=== PATIENT | female | born 1980 | race Caucasian/White ===

== ENCOUNTER 2018-06-28 15:47 | Emergency (ER) | payer OTHER ==
[2018-06-28 20:29] LABS: ADD UMIC YES; UR ASCORBIC ACID NEGATIVE (NEGATIVE); UR BACTERIA FEW /HPF (NONE SEEN); UR BILIRUBIN (Dip) NEGATIVE (NEGATIVE); UR BLOOD (Dip) 3+ mg/dL (NEGATIVE); UR CLARITY CLOUDY (CLEAR); UR COLOR AMBER (YELLOW); UR GLUCOSE (Dip) NEGATIVE (NEGATIVE); UR KETONES (Dip) NEGATIVE (NEGATIVE); UR LEUKOCYTE ESTERASE (Dip) NEGATIVE Leu/ul (NEGATIVE); UR NITRITE (Dip) NEGATIVE (NEGATIVE); UR RBC > 182 /HPF (0-5); UR SPECIFIC GRAVITY (Dip) 1.014 (1.003-1.030); UR SQUAMOUS EPITHELIAL CELL FEW /HPF (FEW); UR TOTAL PROTEIN (Dip) 2+ mg/dl (NEGATIVE); UR UROBILINOGEN (Dip) NEGATIVE (NEGATIVE); UR WBC > 182 /HPF (0-5)
== END 2018-06-28 20:50 | disposition home or self-care (01) ==
LOC: FTE 15:47
DX: O20.9 Hemorrhage in early pregnancy, unspecified (principal); O20.0 Threatened abortion; O23.41 Unspecified infection of urinary tract in pregnancy, first trimester; Z3A.01 Less than 8 weeks gestation of pregnancy
CPT/HCPCS: 36415; 76801; 76817; 81001; 81025; 84702; 87086; 99284-25

== ENCOUNTER 2018-06-29 20:25 | Observation (INO) | payer OTHER ==
[2018-06-29 21:05] LABS: ADD MAN DIFF? NO
[2018-06-29 21:06] LABS: BASOPHILS % 0.2 % (0.0-2.0); EOSINOPHILS # 0.2 10^3/ul (0.0-0.5); EOSINOPHILS % 1.7 % (0.0-7.0); HEMATOCRIT 46.1 % (37.0-47.0); HEMOGLOBIN 15.3 g/dl (12.0-16.0); LYMPHOCYTES # 3.6 10^3/ul (0.8-2.9); LYMPHOCYTES % 32.1 % (15.0-51.0); MEAN CORPUSCULAR HEMOGLOBIN 29.1 pg (29.0-33.0); MEAN CORPUSCULAR HGB CONC 33.2 g/dl (32.0-37.0); MEAN CORPUSCULAR VOLUME 87.6 fl (82.0-101.0); MEAN PLATELET VOLUME 11.5 fl (7.4-10.4); MONOCYTE # 0.6 10^3/ul (0.3-0.9); MONOCYTES % 4.9 % (0.0-11.0); NEUTROPHIL # 6.9 10^3/ul (1.6-7.5); NEUTROPHILS % 60.9 % (39.0-77.0); PLATELET COUNT 236 10^3/UL (140-415); RED BLOOD COUNT 5.26 10^6/ul (4.20-5.40); RED CELL DISTRIBUTION WIDTH 12.6 % (11.5-14.5)
[2018-06-29 21:06] LABS: WHITE BLOOD COUNT 11.3 10^3/ul (4.8-10.8)
[2018-06-29] MEDS: morphine 4 MG/ML VIAL IV ×2 (21:09→23:34)
[2018-06-29] MEDS: ONDANSETRON 4 MG INJ IV (21:11)
[2018-06-29] MEDS: SOD CHLORIDE 0.9% 1,000 ML IV (21:11)
[2018-06-29 21:12] LABS: POSITIVE DIFF @See below
[2018-06-29 21:25] LABS: ALANINE AMINOTRANSFERASE 13 IU/L (13-69); ALBUMIN 4.1 g/dl (3.3-4.9); ALBUMIN/GLOBULIN RATIO 1.46; ALKALINE PHOSPHATASE 80 IU/L (42-121); ANION GAP 11 (5-13); ASPARTATE AMINO TRANSFERASE 20 IU/L (15-46); BLOOD UREA NITROGEN 17 mg/dl (7-20); CALCIUM 9.2 mg/dl (8.4-10.2); CARBON DIOXIDE 24 mmol/L (21-31); CHLORIDE 105 mmol/L (97-110); CREATININE 0.64 mg/dl (0.44-1.00); Estimated GFR > 60 mL/min (>60); GLUCOSE 108 mg/dl (70-220); POTASSIUM 4.2 mmol/L (3.5-5.1); SODIUM 140 mmol/L (135-144); TOTAL PROTEIN 6.9 g/dl (6.1-8.1)
[2018-06-29 22:44] LABS: ADD UMIC YES; UR ASCORBIC ACID NEGATIVE (NEGATIVE); UR BILIRUBIN (Dip) NEGATIVE (NEGATIVE); UR BLOOD (Dip) 3+ mg/dL (NEGATIVE); UR CLARITY CLOUDY (CLEAR); UR COLOR RED (YELLOW); UR GLUCOSE (Dip) NEGATIVE (NEGATIVE); UR KETONES (Dip) NEGATIVE (NEGATIVE); UR LEUKOCYTE ESTERASE (Dip) TRACE Leu/ul (NEGATIVE); UR NITRITE (Dip) NEGATIVE (NEGATIVE); UR RBC > 182 /HPF (0-5); UR SPECIFIC GRAVITY (Dip) 1.015 (1.003-1.030); UR TOTAL PROTEIN (Dip) 2+ mg/dl (NEGATIVE); UR UROBILINOGEN (Dip) NEGATIVE (NEGATIVE); UR WBC 134 /HPF (0-5)
[2018-06-30] MEDS: HYDROmorphONE 0.5 MG/0.5 ML SYG IV (00:48)
[2018-06-30] MEDS ORDERED: ACETAMINOPHEN 325 MG TAB PO (01:00)
[2018-06-30] MEDS ORDERED: ONDANSETRON 4 MG INJ IV ×2 (01:00→05:30)
[2018-06-30 03:56] LABS: INR 0.93; PROTIME 12.6 Sec (11.9-14.9)
[2018-06-30 03:57] LABS: PARTIAL THROMBOPLASTIN TIME 30.4 Sec (23.0-35.0)
[2018-06-30] MEDS ORDERED: CEFAZOLIN 1 GM INJ (05:22)
[2018-06-30] MEDS ORDERED: MIDAZOLAM 1 MG/ML 2 ML INJ (05:22)
[2018-06-30] MEDS ORDERED: PROPOFOL 20 ML (05:22)
[2018-06-30] MEDS ORDERED: ONDANSETRON 4 MG INJ (05:23)
[2018-06-30] MEDS ORDERED: METOCLOPRAMIDE 10 MG INJ (05:23)
[2018-06-30] MEDS ORDERED: KETOROLAC 30 MG INJ (05:23)
[2018-06-30] MEDS ORDERED: HYDROmorphONE 1 MG/5 ML IV SYRINGE IV ×3 (05:30)
[2018-06-30] MEDS ORDERED: MEPERIDINE 25 MG INJ IV (05:30)
[2018-06-30] MEDS ORDERED: DIPHENHYDRAMINE 50 MG INJ IV (05:30)
[2018-06-30] MEDS ORDERED: FENTAnyl 50 MCG/ML VIAL (05:30)
[2018-06-30] MEDS ORDERED: OXYTOCIN 10 UNIT INJ (05:50)
== END 2018-06-30 10:20 | disposition home or self-care (01) ==
LOC: E/R 20:25 → 2NE 06-30 00:52
DX: O03.4 Incomplete spontaneous abortion without complication (principal)
CPT/HCPCS: 36415; 76801; 76817; 80053; 81001; 84702; 85025; 85610; 85730; 86900; 86901; 87086; 88305; 96374; 96375; 96376; 99285-25

== ENCOUNTER 2018-08-14 21:39 | Emergency (ER) | payer OTHER | END 2018-08-15 01:57 | disposition home or self-care (01) | LOC: FTE 21:39 | DX: O86.01 Infection of obstetric surgical wound, superficial incisional site (principal); B96.89 Other specified bacterial agents as the cause of diseases classified elsewhere | CPT/HCPCS: 99283; Z7502 ==